=== PATIENT | male | born 2000 | race Two or more races ===

== ENCOUNTER 2019-06-13 13:21 | Emergency (ER) | payer BC, OTHER ==
[2019-06-13 13:36] VITALS: BP 119/90; PULSE 80; TEMP 98; BMI 24.7
--- NOTE | 2019-06-13 15:40 | PDOC ---
History of Present Illness - General Chief Complaint: Nasal Bleeding Stated Complaint: NOSE BLEED Time Seen by Provider: 06/13/19 14:27 History Source: Patient Exam Limitations: No Limitations - History of Present Illness Initial Comments: 06/13/19 15:34 18-year-old male with no past medical history presents complaining of epistaxis from right nostril which spontaneously occurred approximately 2 hours ago, lasted approximately 10 minutes. Patient has had upper respiratory symptoms x3 days. Has been blowing his nose constantly, finds his room very warm and dry. Mom states patient had several episodes of epistaxis as a child. ROS: As above PE: GENERAL: well-appearing, NAD HEAD: NCAT EYES: Pupils equal, round and reactive to light, sclera anicteric, conjunctiva clear ENT: No active epistaxis, no nasal polyps noted, pharynx: no erythema, no exudate, uvula midline NECK: supple CHEST: nontender RESP: clear, no w/r/r CARDIO: rrr, no m/g/r ABD: +BS, soft, nontender, non distended BACK: no midline spinal ttp, no CVAT EXTREMITIES: Normal range of motion, no edema NEUROLOGICAL: Normal speech, normal gait SKIN: Warm, Dry Is this a multiple visit Asthma Patient?: No Past History - Past Medical History Allergies/Adverse Reactions: Allergies Allergy/AdvReac Type Severity Reaction Status Date / Time No Known Allergies Allergy Verified 06/13/19 15:06 Home Medications: Ambulatory Orders NK [No Known Home Medication] 06/13/19 COPD: No - Psycho Social/Smoking Cessation Hx Smoking History: Never smoked Have you smoked in the past 12 months: No Information on smoking cessation initiated: No Hx Alcohol Use: No Drug/Substance Use Hx: No *Physical Exam - Vital Signs Last Vital Signs Temp Pulse Resp BP Pulse Ox 98.0 F 80 16 119/90 100 06/13/19 13:30 06/13/19 13:30 06/13/19 13:30 06/13/19 13:30 06/13/19 13:30 Medical Decision Making - Medical Decision Making 06/13/19 15:40 18-year-old male with recent URI symptoms presents with resolved epistaxis. Advised to use air humidifier Instructed patient on how to control epistaxis if it were to recur Stable for discharge Discharge - Discharge Information Problems reviewed: Yes Clinical Impression/Diagnosis: Mild epistaxis Condition: Stable Disposition: HOME - Admission No - Follow up/Referral Referrals: Sienna Cabrera MD [Primary Care Provider] - - Patient Discharge Instructions Additional Instructions: Use air humidifier Avoid blowing nose Return to ED if nosebleed reoccurs, dizziness, shortness of breath, headache or any concerns - Post Discharge Activity
== END 2019-06-13 15:47 | disposition home or self-care (01) ==
LOC: JERFT 13:21
DX: R04.0 Epistaxis (principal)
CPT/HCPCS: 99281-25

== ENCOUNTER 2024-06-13 08:09 | Emergency (ER) | payer OTHER, BC ==
[2024-06-13 08:18] VITALS: BP 118/76; PULSE 57; RESP 18; TEMP 98.3; BMI 23.5
[2024-06-13] MEDS ORDERED: ACETAMINOPHEN 325 MG TABLET (FP) ONE (08:25)
[2024-06-13] MEDS: ACETAMINOPHEN 325 MG TABLET (FP) PO ONE (08:28)
== END 2024-06-13 08:29 | disposition home or self-care (01) ==
LOC: FER 08:09
DX: S50.01XA Contusion of right elbow, initial encounter (principal); W00.0XXA Fall on same level due to ice and snow, initial encounter; Y99.0 Civilian activity done for income or pay
CPT/HCPCS: 99283-25